=== PATIENT | female | born 1950 | race Caucasian/White ===

== ENCOUNTER 2017-09-03 03:02 | Observation (INO) | payer MEDICARE ==
[~2017-09-03] VITALS: Ht 152.4 cm; Wt 117.9 kg
[~2017-09-03 03:02] MED LIST: ADVIL100 M2; ALLOPURINOL 10100 M3 PO; B12INJ INJECTION; BENTYL20 MG PO; CIPRO250 M1 PO; CIPROFLOXACIN500 M1 PO; CLONAZEPAM 0.50.5 M1 PO; DOXYCYCLINE 10100 MG PO; EVISTA; EVISTA PO; FENOFIBRATE134 MG PO; HYDROCODONE-AP1 EAC6 PO; LEVSIN-SL0.125 MG SL; LEXAPRO 10 MG T10 M1 PO; LOTREL 5-20 MG1 EACH PO; MULTIVITAMINS; NEURONTIN 300300 M1 PO; NORCO 5-325 TA1 EACH PO; OMEPRAZOLE; OXYBUTYNIN 5 MG5 M2 PO; PERCOCET 5-3251 EACH PO; PRILOSEC 20 MG20 MG PO; PRINIVIL5 MG PO; PYRIDIUM200 MG PO; SERTRALINE HCL50 MG PO; SYNTHROID75 MCG PO; TIROSINT75 MCG PO; TRICOR145 MG PO; VENTOLIN HFA 1818 GM INH; VOLTAREN GEL 1100 G2; XANAX 0.25 MG0.25 MG PO; ZOFRAN 4 MG ORAL4 MG PO
[2017-09-03 03:11] VITALS: BP 150/84
[2017-09-03] MEDS ORDERED: B12INJ (03:20)
[2017-09-03] MEDS ORDERED: BENAZEPRIL HCL20 MG PO (03:22)
[2017-09-03 03:23] LABS: URINE BILIRUBIN NEGATIVE (Negative); URINE BLOOD NEGATIVE (Negative); URINE CLARITY CLEAR; URINE COLOR YELLOW; URINE GLUCOSE-RANDOM NEGATIVE (Negative); URINE KETONES NEGATIVE (Negative); URINE LEUKOCYTES-REFLEX 1+ (Negative); URINE NITRITE-REFLEX NEGATIVE (Negative); URINE PROTEIN NEGATIVE (Negative); URINE SPECIFIC GRAVITY 1.015 (1.005-1.030); URINE UROBILINOGEN 0.2 E.U./dl (0.2-1.0)
[2017-09-03] MEDS ORDERED: HYDROCHLOROTHIA25 M1 PO (03:23)
[2017-09-03] MEDS ORDERED: ASPIR 8181 MG PO (03:23)
[2017-09-03] MEDS ORDERED: PEPCID40 MG PO (03:24)
[2017-09-03] MEDS ORDERED: VITAMIN D1000 UNI1 PO (03:25)
[2017-09-03 04:01] LABS: SQUAMOUS >10 Many /LPF (0-3)
[2017-09-03 04:02] LABS: CASTS None Seen /LPF (None Seen)
[2017-09-03 04:03] LABS: URINE RBC None Seen /HPF (0-2)
[2017-09-03 04:04] LABS: BACTERIA-REFLEX 1-9 Few /HPF (None Seen); CRYSTALS None Seen /LPF (None Seen); RENAL EPITHELIAL CELLS 4-10 Moderate /LPF (None Seen)
--- NOTE | 2017-09-03 04:06 | NUR ---
DR WILLIE VERNON UROLOGY
[2017-09-03 05:03] LABS: ABSOLUTE BASOPHILS 0.1 thou/uL (0.0-0.2); ABSOLUTE EOSINOPHILS 0.1 thou/uL (0.0-0.7); ABSOLUTE LYMPHOCYTES 2.5 thou/uL (0.8-5.3); ABSOLUTE MONOCYTES 0.5 thou/uL (0.0-1.2); ABSOLUTE NEUTROPHILS 2.6 thou/uL (1.6-8.1); BASOPHILS 0.9 %; EOSINOPHILS 1.9 %; HEMATOCRIT 43.4 % (37.0-47.0); HEMOGLOBIN 14.4 gm/dL (12.0-15.0); LYMPHOCYTES 43.1 %; MCH 30.6 pg (26.0-34.0); MCHC 33.2 g/dL (28.0-37.0); MCV 92.1 fL (80.0-100.0); MONOCYTES 8.7 %; MPV 8.2 fl. (7.2-11.1); NUCLEATED RBCS 0 /100WBC; PLATELET COUNT* 217 thou/uL (150-400); POLYS 45.4 %; RBC 4.71 mil/uL (4.20-5.00); RDW-CV 13.2 % (10.5-14.5); WBC 5.8 thou/uL (4.0-11.0)
[2017-09-03 05:12] LABS: CALCIUM 9.2 mg/dL (8.5-10.1); CREATININE 1.3 mg/dL (0.6-1.3); POTASSIUM 3.9 mmol/L (3.5-5.1)
[2017-09-03 08:10] VITALS: BP 104/40
--- NOTE | 2017-09-03 08:20 | NUR ---
ASSUMED CARE OF PATIENT AFTER TRNASFER FROM THE ED AT 0820. ORIENTED PATIENT TO ROOM. ADMIT ASSESSMENT COMPLETED AND CHARTED. VSS ON ROOM AIR. CALL LIGHT IS WITHIN REACH REACH. NURSING WILL CONTINUE TO MONITOR.
[2017-09-03 08:44] VITALS: BP 138/61
[2017-09-03 15:11] VITALS: BP 138/61
[2017-09-03 16:00] VITALS: BP 146/61
--- NOTE | 2017-09-03 16:47 | NUR ---
PATIENT HAD NO COMPLAINTS OF NAUSEA THROUGHOUT SHIFT. PAIN HAS BEEN MANAGED WITH PAIN MEDICATION. PATIENT SCANNED FOR URINARY RETENTION AND SHOWED NONE. PATIENT DISCHARGED AT 1645. ALL PERSONAL BELONGINGS LEFT WITH PATIENT. PRESCRIPTION AND DISCHARGE INFORMATION SENT WITH PATIENT UPON DISCHARGE.
== END 2017-09-03 16:45 | disposition home or self-care (01) ==
LOC: M.ERS 03:02 → M.TBA-ER 04:45 → M.ORTHSURG 08:01
PROVIDERS: Emergency Medicine; ADMIT Internal Medicine
DX: R10.31 Right lower quadrant pain (principal); N20.0 Calculus of kidney; K75.81 Nonalcoholic steatohepatitis (NASH); M54.9 Dorsalgia, unspecified; I10 Essential (primary) hypertension; F32.9 Major depressive disorder, single episode, unspecified; K21.9 Gastro-esophageal reflux disease without esophagitis; K43.9 Ventral hernia without obstruction or gangrene; Z87.891 Personal history of nicotine dependence

== ENCOUNTER 2018-01-26 12:39 | Inpatient (IN) | payer MEDICARE ==
[~2018-01-26] VITALS: Ht 167.6 cm; Wt 104.3 kg
[~2018-01-26 12:39] MED LIST changes: +ASPIR 8181 MG PO; +B12INJ; +BENAZEPRIL HCL20 MG PO; +HYDROCHLOROTHIA25 M1 PO; +PEPCID40 MG PO; +VITAMIN D1000 UNI1 PO
[2018-01-26 12:47] VITALS: BP 153/86
[2018-01-26 13:33] LABS: ABSOLUTE BASOPHILS 0.1 thou/uL (0.0-0.2); ABSOLUTE EOSINOPHILS 0.2 thou/uL (0.0-0.7); ABSOLUTE LYMPHOCYTES 1.9 thou/uL (0.8-5.3); ABSOLUTE MONOCYTES 0.5 thou/uL (0.0-1.2); ABSOLUTE NEUTROPHILS 2.9 thou/uL (1.6-8.1); EOSINOPHILS 2.8 %; HEMATOCRIT 42.9 % (37.0-47.0); HEMOGLOBIN 14.5 gm/dL (12.0-15.0); LYMPHOCYTES 34.8 %; MCH 31.3 pg (26.0-34.0); MCHC 33.8 g/dL (28.0-37.0); MCV 92.7 fL (80.0-100.0); MONOCYTES 8.5 %; MPV 7.9 fl. (7.2-11.1); NUCLEATED RBCS 0 /100WBC; PLATELET COUNT* 264 thou/uL (150-400); POLYS 52.9 %; RBC 4.63 mil/uL (4.20-5.00); RDW-CV 13.2 % (10.5-14.5); WBC 5.4 thou/uL (4.0-11.0)
[2018-01-26 13:50] LABS: ANION GAP 7 mmol/L (7-16); BUN 21 mg/dL (7-18); CALCIUM 9.4 mg/dL (8.5-10.1); CHLORIDE 103 mmol/L (98-107); CO2 29 mmol/L (21-32); CREATININE 1.1 mg/dL (0.6-1.3); GLUCOSE 92 mg/dL (70-99); POTASSIUM 3.7 mmol/L (3.5-5.1); SODIUM 139 mmol/L (136-145)
[2018-01-26 13:57] LABS: ALBUMIN 3.3 g/dL (3.4-5.0); ALKALINE PHOSPHATASE 54 U/L (46-116); SGOT 19 U/L (15-37); SGPT 29 U/L (30-65); TOTAL BILIRUBIN 0.3 mg/dL (<0.1-1.0); TOTAL PROTEIN 6.9 g/dL (6.4-8.2); TROPONIN-I LEVEL <0.06 ng/mL (<0.06)
[2018-01-26 14:09] LABS: URINE BILIRUBIN NEGATIVE (Negative); URINE BLOOD 3+ (Negative); URINE CLARITY CLOUDY; URINE COLOR YELLOW; URINE GLUCOSE-RANDOM NEGATIVE (Negative); URINE KETONES NEGATIVE (Negative); URINE LEUKOCYTES-REFLEX TRACE (Negative); URINE NITRITE-REFLEX NEGATIVE (Negative); URINE PROTEIN NEGATIVE (Negative); URINE SPECIFIC GRAVITY 1.015 (1.005-1.030); URINE UROBILINOGEN 0.2 E.U./dl (0.2-1.0)
[2018-01-26 14:25] LABS: SQUAMOUS 4-10 Moderate /LPF (0-3)
[2018-01-26 14:26] LABS: AMORPHOUS URATES Moderate /LPF (None Seen); CASTS None Seen /LPF (None Seen); URINE RBC >20 Many /HPF (0-2); URINE WBC-REFLEX 0-5 Rare /HPF (0-5)
[2018-01-26 17:05] VITALS: BP 155/72
[2018-01-26 20:00] VITALS: BP 144/57
[2018-01-27 08:10] VITALS: BP 136/62
--- NOTE | 2018-01-27 10:11 | EKG ---
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: : 1950 Requested By: Yasmeen Green Order Number: [id number] MD: Omar Roca Measurements Intervals [place] Rate: 66 P: 34 TN: 152 QRS: 17 QRSD: 96 T: 33 QT: 415 QTc: 435 Interpretive Statements Sinus rhythm Low voltage, precordial leads Borderline T abnormalities, anterior leads Compared to ECG 10/24/2013 17:58:38 Low QRS voltage now present T-wave abnormality now present Electronically Signed On 01-27-2018 10:11:02 CDT by Omar Roca [email or web address] <ELECTRONICALLY SIGNED> By: Omar Roca MD, [facility] 01/27/18 1011 [id number] [id number] Omar Roca MD, [facility] /EPI
[2018-01-27 16:00] VITALS: BP 148/61
[2018-01-27 20:00] VITALS: BP 137/59
[2018-01-28 09:30] VITALS: BP 111/49
[2018-01-28] MEDS ORDERED: CEFDINIR300 MG PO (10:39)
[2018-01-28] MEDS ORDERED: FLAGYL500 MG PO (10:39)
[2018-01-28] MEDS ORDERED: FLOMAX0.4 MG PO (10:39)
[2018-01-28] MEDS ORDERED: BACID CAPLET1 EACH PO (10:41)
[2018-01-28 12:18] VITALS: BP 111/49
== END 2018-01-28 13:20 | disposition home or self-care (01) | DRG 392 ==
LOC: M.ERS 12:39 → M.TBA-ER 15:39 → M.ORTHSURG 15:39
PROVIDERS: Physician Assistant; ADMIT Internal Medicine
DX: K57.92 Diverticulitis of intestine, part unspecified, without perforation or abscess without bleeding (principal); E83.59 Other disorders of calcium metabolism; E66.9 Obesity, unspecified; I10 Essential (primary) hypertension; F32.9 Major depressive disorder, single episode, unspecified; G89.29 Other chronic pain; M54.9 Dorsalgia, unspecified; K21.9 Gastro-esophageal reflux disease without esophagitis; E89.0 Postprocedural hypothyroidism; N29 Other disorders of kidney and ureter in diseases classified elsewhere; Z68.37 Body mass index [BMI] 37.0-37.9, adult; Z88.6 Allergy status to analgesic agent; Z88.1 Allergy status to other antibiotic agents; Z88.0 Allergy status to penicillin; Z90.49 Acquired absence of other specified parts of digestive tract; Z98.890 Other specified postprocedural states; Z87.891 Personal history of nicotine dependence; Z87.442 Personal history of urinary calculi; Z79.899 Other long term (current) drug therapy

== ENCOUNTER 2018-08-20 23:29 | Emergency (ER) | payer MEDICARE ==
[~2018-08-20] VITALS: Ht 167.6 cm; Wt 111.1 kg
[~2018-08-20 23:29] MED LIST changes: +BACID CAPLET1 EACH PO; +CEFDINIR300 MG PO; +FLAGYL500 MG PO; +FLOMAX0.4 MG PO
[2018-08-20] MEDS ORDERED: OMEPRAZOLE 20 M20 M1 (23:50)
[2018-08-21] MEDS ORDERED: PREDNISONE50 MG PO (00:49)
[2018-08-21] MEDS ORDERED: BACTRIM DS TAB1 EACH PO (00:50)
[2018-08-21 01:00] VITALS: BP 180/80
== END 2018-08-21 01:00 | disposition home or self-care (01) ==
LOC: M.ERS 23:29
DX: L29.9 Pruritus, unspecified (principal); T37.8X5A Adverse effect of other specified systemic anti-infectives and antiparasitics, initial encounter; I10 Essential (primary) hypertension; K21.9 Gastro-esophageal reflux disease without esophagitis; G89.29 Other chronic pain; M54.9 Dorsalgia, unspecified; F32.9 Major depressive disorder, single episode, unspecified; E89.0 Postprocedural hypothyroidism; Z88.1 Allergy status to other antibiotic agents; Z88.5 Allergy status to narcotic agent; Z88.0 Allergy status to penicillin; Z88.8 Allergy status to other drugs, medicaments and biological substances; Z90.49 Acquired absence of other specified parts of digestive tract; Z86.2 Personal history of diseases of the blood and blood-forming organs and certain disorders involving the immune mechanism; Z87.891 Personal history of nicotine dependence; Y92.89 Other specified places as the place of occurrence of the external cause

== ENCOUNTER → 2019-02-24 | Outpatient (CLI) | payer MEDICARE ==
[~2019-02-24] MED LIST changes: +BACTRIM DS TAB1 EACH PO; +OMEPRAZOLE 20 M20 M1; +PREDNISONE50 MG PO
== END ==
LOC: M.ULTRA 14:08
DX: M25.561 Pain in right knee (principal); M79.661 Pain in right lower leg; R22.0 Localized swelling, mass and lump, head; H51.8 Other specified disorders of binocular movement

== ENCOUNTER → 2019-04-01 | Outpatient (CLI) | payer MEDICARE | LOC: M.ULTRA 12:43 | DX: I65.23 Occlusion and stenosis of bilateral carotid arteries (principal); E78.5 Hyperlipidemia, unspecified; E03.9 Hypothyroidism, unspecified; F32.9 Major depressive disorder, single episode, unspecified; I12.9 Hypertensive chronic kidney disease with stage 1 through stage 4 chronic kidney disease, or unspecified chronic kidney disease; N18.9 Chronic kidney disease, unspecified; Z88.0 Allergy status to penicillin; Z88.8 Allergy status to other drugs, medicaments and biological substances ==

== ENCOUNTER → 2020-04-14 | Outpatient (CLI) | payer MEDICARE ==
[2020-04-14 12:04] LABS: CREATININE 1.3 mg/dL (0.6-1.3)
== END ==
LOC: M.CT 11:03
PROVIDERS: ATTEND Nurse Practitioner Family
DX: K76.0 Fatty (change of) liver, not elsewhere classified (principal); I25.10 Atherosclerotic heart disease of native coronary artery without angina pectoris; N20.0 Calculus of kidney; N85.8 Other specified noninflammatory disorders of uterus; I70.0 Atherosclerosis of aorta; M47.816 Spondylosis without myelopathy or radiculopathy, lumbar region; K57.30 Diverticulosis of large intestine without perforation or abscess without bleeding; Z90.49 Acquired absence of other specified parts of digestive tract

== ENCOUNTER → 2021-02-16 | Outpatient (CLI) | payer OTHER | LOC: M.CT 12:22 | PROVIDERS: ATTEND Family Medicine | DX: K76.0 Fatty (change of) liver, not elsewhere classified (principal); N26.1 Atrophy of kidney (terminal); K57.30 Diverticulosis of large intestine without perforation or abscess without bleeding; Z90.49 Acquired absence of other specified parts of digestive tract ==